=== PATIENT | male | born 1995 | race Caucasian/White ===

== ENCOUNTER 2016-11-20 06:16 | Observation (INO) | payer OTHER ==
[~2016-11-20] VITALS: Ht 182.9 cm; Wt 109.0 kg
[2016-11-20] MEDS ORDERED: SODIUM CHLORIDE 0.9% 1000ML 500 ML IV STA (06:33)
[2016-11-20] MEDS ORDERED: ASPIRIN 81 MG CHEW PO STA (06:33)
--- NOTE | 2016-11-20 06:53 | EMERGENCY ROOM VISIT NOTE ---
History Report prepared by Vasquez: Rita Snell Under the Supervision of: Dr. Isrrael Avila M.D. First contact with patient: 06:30 Chief Complaint: CHEST PAIN Stated Complaint: CHEST PAIN,IRREGULAR HEART RATE Nursing Triage Summary: Pt states he developed midsternal chest pain around 2300 last evening. Denies radiation into arm or jaw. History of Present Illness The patient is a 21 year old male who presents to the Emergency Room with complaints of waxing and waning chest pain that began 7.5 hours prior to arrival. He currently rates his discomfort as a 6/10 in severity and describes his pain as a dull pain, but notes that it does spike intermittently. The patient localizes his pain to his central chest. He states that he was on his way home when his pain began, and he notes that he had difficulty sleeping due to the pain. The patient reports that he felt tachycardic throughout the night. He states that when he did fall asleep for a short period of time, he woke up and vomited. The patient denies taking anything for his discomfort. He states that he has been feeling short of breath. The patient states that he has been experiencing hot and cold flashes. He denies his pain radiating to any other part of his body. The patient denies any active medical problems. He states that his pain is worsened with deep breathing and lying on either side. The patient states that the pain is not as severe when lying flat on his back and additionally notes that sitting up is better than lying flat. He denies any increased swelling to his lower extremities. The patient denies any personal or family history of DVTs or PEs. He states that last week he drove from [place] to [place]. The patient states that over the past four days he has noticed a cough, cold, and sore neck, noting that he has been taking DayQuil for his symptoms. He states that he has taken this in the past. Source of History: patient Onset: 7.5 hours prior to arrival Position: chest (central) Symptom Intensity: 6/10 Quality: dull Timing: waxes/wanes Modifying Factors (Worsening): breathing (deep), other (lying flat) Associated Symptoms: + cough, + neck pain, + SOB Note: Associated Symptoms: tachycardic, hot and cold flashes Review of Systems See HPI for pertinent positives & negatives. A total of 10 systems reviewed and were otherwise negative. Past Medical & Surgical Medical Problems: (1) No active medical problems Family History No pertinent family history stated. Social History Smoking Status: Current Some Day Smoker Marital Status: single Occupation Status: [employer] student Current/Historical Medications No Active Prescriptions or Reported Meds Allergies Coded Allergies: No Known Allergies (Unverified , 11/20/16) Physical Exam Vital Signs Date Time Temp Pulse Resp B/P (MAP) Pulse Ox O2 Delivery O2 Flow Rate FiO2 11/20/16 07:53 90 20 137/87 97 Room Air 11/20/16 06:27 88 11/20/16 06:25 97 Room Air 11/20/16 06:23 97 Room Air 11/20/16 06:17 37.1 93 20 144/97 93 Room Air Physical Exam GENERAL: Patient is in no acute distress. HEENT: No acute trauma, normocephalic atraumatic, mucous membranes moist, no nasal congestion, no scleral icterus. NECK: No stridor, no adenopathy, no meningismus, trachea is midline. CHEST: Tender to anterior chest wall over the sternum. LUNGS: Clear to auscultation bilaterally, no wheeze, no rhonchi, breath sounds equal. HEART: Without murmurs gallops or rubs, regular rate and rhythm. ABDOMEN: Soft, nontender, bowel sounds positive, no hernias, no peritonitis. EXTREMITIES: No cyanosis or edema, full range of motion of all the joints without pain or difficulty, no signs for acute trauma. NEUROLOGIC: Oriented x 3, no acute motor or sensory deficits, no focal weakness. SKIN: No rash, no jaundice, no diaphoresis. Medical Decision & Procedures ER Provider Diagnostic Interpretation: X-ray results as stated below per interpretation by me and the radiologist: CHEST ONE VIEW PORTABLE HISTORY: 21 years-old Male acute chest pain and cough COMPARISON: None available TECHNIQUE: Portable upright AP view of the chest FINDINGS: Cardiomediastinal and hilar silhouettes are within normal limits. No pneumothorax, pleural effusion or focal airspace consolidation. The bones are grossly intact. IMPRESSION: No acute cardiopulmonary process. The above report was generated using voice recognition software. It may contain grammatical, syntax or spelling errors. Electronically signed by: David Bay M.D. 11/20/2016 6:50 AM Dictated Date/Time: 11/20/2016 6:50 AM Laboratory Results 11/20/16 06:30 11/20/16 06:30 Test 11/20/16 06:30 11/20/16 06:39 Red Blood Count 5.03 M/uL (4.7-6.1) Mean Corpuscular Volume 85.5 fL (80-100) Mean Corpuscular Hemoglobin 31.4 pg (25-34) Mean Corpuscular Hemoglobin Concent 36.7 g/dl (32-36) RDW Standard Deviation 39.9 fL (36.4-46.3) RDW Coefficient of Variation 12.7 % (11.5-14.5) Mean Platelet Volume 9.7 fL (7.4-10.4) Prothrombin Time 10.9 SECONDS (9.0-12.0) Prothromb Time International Ratio 1.0 (0.9-1.1) Activated Partial Thromboplast Time 28.6 SECONDS (21.0-31.0) Partial Thromboplastin Ratio 1.1 Anion Gap 6.0 mmol/L (3-11) Est Creatinine Clear Calc Drug Dose 135.5 ml/min Estimated GFR () 110.6 Estimated GFR (Non- 95.5 BUN/Creatinine Ratio 10.1 (10-20) Calcium Level 8.5 mg/dl (8.5-10.1) Total Bilirubin 0.7 mg/dl (0.2-1) Aspartate Amino Transf (AST/SGOT) 22 U/L (15-37) Alanine Aminotransferase (ALT/SGPT) 31 U/L (12-78) Alkaline Phosphatase 100 U/L (45-117) Troponin I 1.380 ng/ml (0-0.045) Total Protein 7.4 gm/dl (6.4-8.2) Albumin 3.9 gm/dl (3.4-5.0) Globulin 3.5 gm/dl (2.5-4.0) Albumin/Globulin Ratio 1.1 (0.9-2) Bedside D-Dimer 254 ng/mlFEU (0-450) Laboratory results reviewed by me. Medications Administered Medications (Trade) Dose Ordered Sig/Soni Route Start Time Stop Time Status Last Admin Dose Admin Sodium Chloride 500 ml @ 999 mls/hr Q31M STAT IV 11/20/16 06:33 11/20/16 07:03 DC 11/20/16 06:44 999 MLS/HR Aspirin (Aspirin Chew) 324 mg NOW STAT PO 11/20/16 06:33 11/20/16 06:36 DC 11/20/16 06:42 324 MG ECG Indication: chest pain Rate (beats per minute): 85 Rhythm: normal sinus Findings: no acute ischemic change, no ectopy, other (diffuse early repolarization) ED Course 0632: The patient was evaluated in room B10. A complete history and physical exam was performed. 0633: Ordered Aspirin 324 mg PO, Sodium Chloride 500 ml @ 999 mls/hr IV. 0814: I reevaluated the patient and he is resting comfortably. I discussed the exam findings with him and I discussed the treatment plan. He verbalized complete understanding and agreement. He is going to be evaluated for further treatment. 0817: I discussed the patients case with AISHWARYA Sharif. He is going to evaluate the patient for further treatment. Medical Decision The patient is a 21 year old male who presents to the ED with complaints of chest pain. Differential diagnoses considered include Musculoskeletal pain, pericarditis, pneumonia, bronchitis, NV, PE, aortic dissection. There is a mild leukocytosis which could be consistent with infection. No concerning anemia. No significant electrolyte abnormality, kidney failure or hepatitis. There is no coagulopathy. EKG shows a normal sinus rhythm with some ST elevations consistent with early repolarization or possibly pericarditis. Chest x-ray does not show pneumonia, CHF or mediastinal widening. Cardiac enzyme testing times one does show a troponin elevation, consistent with some cardiac injury or strain. D-dimer testing was negative. With a negative d-dimer and my low suspicion for PE, I will stop the workup for this diagnosis. The patient received IV saline and oral aspirin. He is now pain-free since taking the aspirin. The patient likely has pericarditis and/or a myocarditis. He does have a presumed viral illness for which he is using DayQuil. Right now, he is comfortable and stable. I spoke with him about the findings. I do think a hospital stay is warranted. I spoke to the case management team. The on-call hospitalist was consulted. Consults Time Called: 813 Consulting Physician: AISHWARYA Sharif Returned Call: [phone] I discussed the patients case with AISHWARYA Sharif. He is going to evaluate the patient for further treatment. Impression Primary Impression: Precordial chest pain Additional Impression: Elevated troponin Scribe Attestation The scribe's documentation has been prepared under my direction and personally reviewed by me in its entirety. I confirm that the note above accurately reflects all work, treatment, procedures, and medical decision making performed by me. Departure Information Dispostion Being Evaluated By Hospitalist Prescriptions No Active Prescriptions or Reported Meds Referrals No Doctor, Assigned (PCP) Problem Qualifiers
[2016-11-20 07:56] LABS: MEAN CELL VOLUME 85.5 fL (80-100); MEAN CORPUSCULAR HEMOGLOBIN 31.4 pg (25-34); MEAN CORPUSCULAR HGB CONC 36.7 g/dl (32-36); MEAN PLATELET VOLUME 9.7 fL (7.4-10.4); PLATELET COUNT 178 K/uL (130-400); RED BLOOD COUNT 5.03 M/uL (4.7-6.1); WHITE BLOOD COUNT 11.72 K/uL (4.8-10.8)
[2016-11-20 08:00] LABS: PARTIAL THROMBOPLASTIN RATIO 1.1; PROTHROMBIN TIME (PATIENT) 10.9 SECONDS (9.0-12.0)
[2016-11-20 08:04] LABS: BUN/CREATININE RATIO 10.1 (10-20); CALCIUM 8.5 mg/dl (8.5-10.1); CREATININE 1.1 mg/dl (0.60-1.40); POTASSIUM 3.8 mmol/L (3.5-5.1)
[2016-11-20 08:11] LABS: ALB/GLOB RATIO 1.1 (0.9-2)
[2016-11-20] MEDS ORDERED: MoRPHine SULFATE 2 MG/ML CARP IV PRN (09:30)
[2016-11-20] MEDS ORDERED: NITROGLYCERIN 0.4 MG SL PER TAB CHARGE SL PRN (09:30)
[2016-11-20] MEDS ORDERED: ACETAMINOPHEN 325 MG TAB PO PRN (09:30)
--- NOTE | 2016-11-20 09:35 | History and Physical ---
History & Physical Date & Time of Service: Nov 20, 2016 at 09:27 Chief Complaint: Chest Pain,Irregular Heart Rate Primary Care Physician: No Doctor, Assigned History of Present Illness 21 y/o M came to ED with complain of substernal, constant, severe, non radiating chest pain started 11pm last night which was waxing and waning with most severe being 7/10 associated with minimal shortness of breath. Pain worse when sitting. He also felt like his heart was beating fast all night. He also vomited this morning after waking up. In the ER he was given aspirin which has almost resolved the pain. He did have uri symptoms for 3-4 days. Denies any illicit drug abuse. No family history of early CAD Past Medical/Surgical History Asthma Right ACL repair Family History Negative Social History Smoking Status: Current Some Day Smoker Marital Status: single Occupational Status: [employer] student Allergies Coded Allergies: No Known Allergies (Unverified , 11/20/16) Home Medications No Active Prescriptions or Reported Meds Review of Systems Constitutional: No fever Eyes: No worsening of vision ENT: No hearing loss Respiratory: + shortness of breath Cardiovascular: + chest pain Abdomen: No pain, No nausea, No vomiting Musculoskeletal: No joint pain Genitourinary - Male: No hematuria Neurologic: No weakness, No numbness/tingling Psychiatric: No depression symptoms Endocrine: No fatigue Hematologic / Lymphatic: No abnormal bleeding/bruising Integumentary: No rash Allergic / Immunologic: No environmental allergies Physical Exam Vital Signs Date Time Temp Pulse Resp B/P (MAP) Pulse Ox O2 Delivery O2 Flow Rate FiO2 11/20/16 09:22 76 20 145/93 95 Room Air 11/20/16 07:53 90 20 137/87 97 Room Air 11/20/16 06:27 88 11/20/16 06:25 97 Room Air 11/20/16 06:23 97 Room Air 11/20/16 06:17 37.1 93 20 144/97 93 Room Air General Appearance: WD/WN, no apparent distress Head: normocephalic, atraumatic Eyes: normal inspection, PERRL, EOMI ENT: normal ENT inspection, hearing grossly normal, TMs normal, pharynx normal Neck: supple, no adenopathy, thyroid normal Respiratory/Chest: chest non-tender, lungs clear, normal breath sounds, no respiratory distress, no accessory muscle use Cardiovascular: regular rate, rhythm, no edema, no gallop, no JVD, no murmur, normal peripheral pulses Abdomen/GI: normal bowel sounds, non tender, soft, no organomegaly, no pulsatile mass Back: normal inspection, no CVA tenderness Extremities/Musculoskelatal: normal inspection, no calf tenderness, no pedal edema Neurologic/Psych: environmental professional II-XII nml as tested, no motor/sensory deficits, alert, normal mood/affect, normal reflexes, oriented x 3 Skin: normal color, warm/dry Diagnostics Laboratory Results Results Past 24 Hours Test 11/20/16 06:30 11/20/16 06:39 Range/Units White Blood Count 11.72 4.8-10.8 K/uL Red Blood Count 5.03 4.7-6.1 M/uL Hemoglobin 15.8 14.0-18.0 g/dL Hematocrit 43.0 42-52 % Mean Corpuscular Volume 85.5 80-100 fL Mean Corpuscular Hemoglobin 31.4 25-34 pg Mean Corpuscular Hemoglobin Concent 36.7 32-36 g/dl RDW Standard Deviation 39.9 36.4-46.3 fL RDW Coefficient of Variation 12.7 11.5-14.5 % Platelet Count 178 130-400 K/uL Mean Platelet Volume 9.7 7.4-10.4 fL Prothrombin Time 10.9 9.0-12.0 SECONDS Prothromb Time International Ratio 1.0 0.9-1.1 Activated Partial Thromboplast Time 28.6 21.0-31.0 SECONDS Partial Thromboplastin Ratio 1.1 Sodium Level 137 136-145 mmol/L Potassium Level 3.8 3.5-5.1 mmol/L Chloride Level 104 98-107 mmol/L Carbon Dioxide Level 27 21-32 mmol/L Anion Gap 6.0 3-11 mmol/L Blood Urea Nitrogen 11 7-18 mg/dl Creatinine 1.10 0.60-1.40 mg/dl Est Creatinine Clear Calc Drug Dose 135.5 ml/min Estimated GFR () 110.6 Estimated GFR (Non- 95.5 BUN/Creatinine Ratio 10.1 10-20 Random Glucose 121 70-99 mg/dl Calcium Level 8.5 8.5-10.1 mg/dl Total Bilirubin 0.7 0.2-1 mg/dl Aspartate Amino Transf (AST/SGOT) 22 15-37 U/L Alanine Aminotransferase (ALT/SGPT) 31 12-78 U/L Alkaline Phosphatase 100 45-117 U/L Troponin I 1.380 0-0.045 ng/ml Total Protein 7.4 6.4-8.2 gm/dl Albumin 3.9 3.4-5.0 gm/dl Globulin 3.5 2.5-4.0 gm/dl Albumin/Globulin Ratio 1.1 0.9-2 Bedside D-Dimer 254 0-450 ng/mlFEU CXR normal other (EKG - NSR with rate of 85 and early repolarization changes, ) Impression Assessment and Plan 21 y/o M with Chest pain noted to have elevated troponin in ED Chest pain with elevated troponin Considering no risk factor for CAD and EKG findings - likely pericarditis Keep on PCU. Trend troponin Check Echo consult cardio. Aspirin VTE Prophylaxis VTE Risk Assessment Done? Y/N: Yes Risk Level: Low
[2016-11-20] MEDS ORDERED: IV FLUIDS COMPLETED PRN (09:45)
[2016-11-20 10:13] VITALS: BP 128/82; PULSE 80; TEMP 36.9; O2SAT 96; Ht 182.9 cm; Wt 109.0 kg
[2016-11-20] MEDS ORDERED: COLCHICINE 0.6 MG TAB PO ONE (11:53)
[2016-11-20] MEDS ORDERED: INDOMETHACIN 25 MG CAP PO ONE (11:53)
[2016-11-20] MEDS ORDERED: PERFLUTREN LIPID MICROSPHERE (DEFINITY) IV ONE (12:04)
[2016-11-20 12:15] VITALS: BP 133/89; PULSE 80; TEMP 36.9; O2SAT 98
--- NOTE | 2016-11-20 13:00 | CARDIOLOGY CONSULTATION ---
DATE OF CONSULTATION: 11/20/2016 PERTINENT HISTORY: Mr. Fontanez is a 21-year-old white male admitted earlier today with chest pain syndrome, abnormal ECG, and elevated troponin. This consultation was ordered to assist in his cardiac management. The patient was in his usual state of health until approximately 3 days prior to presentation when he developed coryza. The patient had a sore throat, rhinorrhea, malaise, and a low grade fever. However, last evening, the patient developed a substernal chest tightness, which was nonradiating. It was present all night and the patient was unable to sleep. He did notice a positional component and that his discomfort was much more pronounced when in a supine position. He felt better seated upright and leaning forward. The patient did experience fay shortness of breath; however, felt as if he "could not take in a deep breath." On presentation to Emergency Room, the patient had an EKG performed, which revealed diffuse ST elevation. His troponin level was elevated at 1.38. He was hospitalized for further care. The patient did receive 1 dose of aspirin in the Emergency Room and noted a dramatic improvement in his discomfort. Currently, the patient is resting comfortably in bed and notices only a vague substernal chest discomfort. PAST MEDICAL HISTORY: 1. Seasonal asthma. 2. Status post right ACL surgery -- 2013. MEDICATIONS: None. ALLERGIES: None. SOCIAL HISTORY: The patient is a senior at [employer], studying finance. Moving back to [place] after graduation. Admits to smoking 1 cigarette weekly. Admits to 10 beers every week. Does not use illicit drugs. FAMILY HISTORY: Parents and siblings are alive and well. REVIEW OF SYSTEMS: A 10-point review of systems is negative except for that described above. PHYSICAL EXAMINATION: GENERAL: This is a well-developed and well-nourished white male in no acute distress. VITAL SIGNS: Blood pressure 133/88 with a regular pulse of 80. Respiratory rate is 18. The patient is afebrile at 36.9 degrees Celsius. Saturation is 98% on room air. HEENT: Negative. NECK: Supple with full carotid upstrokes. There are no carotid bruits. Jugular venous pressure is flat at 90 degrees. There is no thyromegaly. CARDIOVASCULAR: Reveals a regular rhythm with normal S1 and S2. No S3, S4, murmurs or rubs are noted. LUNGS: Clear without rales, rhonchi, or wheezes. ABDOMEN: Soft and nontender without bruits. EXTREMITIES: Reveal intact radial artery and posterior tibial pulses bilaterally. There is no peripheral edema. LABORATORY DATA: CBC notes a hemoglobin of 15.8, hematocrit 43.0, white count 11.7, and platelet count 178,000. Sodium is 137 with potassium 3.8, chloride 104, bicarb 27, BUN 11, creatinine 1.1, and glucose 121. Liver transaminases are normal. Troponin I level was elevated at 1.38. INR is 1.0. Point of care D-dimer is normal at 254. EKG notes normal sinus rhythm and diffuse ST elevation consistent with pericarditis. Chest x-ray shows no acute disease. designer is benign. Echocardiogram notes reduced left ventricular systolic performance with an ejection fraction of approximately 40%. IMPRESSION: It appears that Mr. Fontanez is experiencing acute myopericarditis. There is mild left ventricular dysfunction with an elevation of his troponin that suggests a myocardial involvement. EKG is classic for acute pericarditis. I suspect this is related to his recent upper respiratory infection and is likely viral in origin. Would treat with indomethacin and colchicine. Indomethacin should be continued for 1 month and colchicine for up to 3 months. PLAN: 1. Start indomethacin 50 mg t.i.d. 2. Start colchicine 0.6 mg daily. 3. Nonsteroidal agents for a total of 1 month. 4. Colchicine for a total of 3 months. 5. Reassess left ventricular systolic function as an outpatient in approximately 6-8 weeks. 6. Further recommendations depending on his clinical course. SATHYA
--- NOTE | 2016-11-20 14:16 | ECHOCARDIOGRAM REPORT ---
*NOTICE TO RECEIVING [employer] This information is strictly Confidential and protected under [place] law. [place] law prohibits you from making any further disclosure of this information unless further disclosure is expressly permitted by the written consent of the person to whom it pertains or is authorized by law. A general authorization for the release of medical or other information is not sufficient for this purpose. Hospital accepts no responsibility if the information is made available to any other person, INCLUDING THE PATIENT. Interpretation Summary * Name: MISTY SEXTON Study Date: 11/20/2016 10:25 AM BP: 145/93 mmHg * Patient Location: 2\S\S233\S\1 HR: 68 * : 1995 (M/d/yyyy) Gender: Male Height: 72 in * Age: 21 yrs Ethnicity: CA Weight: 240 lb * Ordering Physician: Ernestina Mireles * Performed By: Trisha Resendiz * * Reason For Study: CHEST PAIN, ELEVATED TROP * BSA: 2.3 m2 * -- Conclusions -- * Left ventricular systolic function is mildly reduced. * There is mild global hypokinesis of the left ventricle. * Ejection fraction = 45%. * No significant valvular pathology. Procedure Details * A complete two-dimensional transthoracic echocardiogram was performed (2D, M-mode, Doppler and color flow Doppler). * A contrast injection of Definity was performed to improve assessment of LV function. * Contrast was injected into an intravenous site in the left arm. * One vial of Definity ultrasound contrast was diluted in normal saline to a total volume of 10 ml. A total of '3' ml of solution was administered during imaging. * Lot # [id number] of Definity utilized for procedure. * Expiration date 11/15. * The attending nurse who injected the contrast agent was CARLY LENZ RN. Left Ventricle * The left ventricle is normal in size. * There is normal left ventricular wall thickness. * Left ventricular systolic function is mildly reduced. * Ejection fraction = 45% * There is mild global hypokinesis of the left ventricle. Right Ventricle * The right ventricle is grossly normal size. * The right ventricular systolic function is borderline reduced. Atria * The left atrium is mildly dilated. * Right atrial size is normal. * No ASD detected; PFO is not assessed. Mitral Valve * The mitral valve anatomy is normal. * There is no mitral valve stenosis. * There is trace mitral regurgitation. Tricuspid Valve * The tricuspid valve anatomy is normal. * There is trace tricuspid regurgitation. Aortic Valve * The aortic valve is normal in structure and function. * No hemodynamically significant valvular aortic stenosis. * No aortic regurgitation is present. Pulmonic Valve * The pulmonary valve is not well seen, but the Doppler examination is normal without significant regurgitation or stenosis. Great Vessels * The aortic root is normal size. * The pulmonary is not well visualized. Pericardium/Pleural * There is no pericardial effusion. Great Vessels * Normal inferior vena cava size and collapsability with sniff indicates a normal right atrial pressure of 3 mmHg MMode 2D Measurements and Calculations IVSd 1.8 cm IVSs 2.0 cm LVIDd 5.4 cm LVIDs 4.2 cm LVPWd 0.97 cm LVPWs 1.7 cm IVS/LVPW 1.9 FS 22.0 % EDV(Teich) 142.3 ml ESV(Teich) 79.6 ml EF(Teich) 44.1 % EDV(cubed) 158.9 ml ESV(cubed) 75.3 ml EF(cubed) 52.6 % % IVS thick 9.4 % % LVPW thick 79.1 % LV mass(C)d 325.5 grams LV mass(C)dI 141.4 grams/m\S\2 LV mass(C)s 352.9 grams LV mass(C)sI 153.3 grams/m\S\2 CO(Teich) 5.1 l/min CI(Teich) 2.2 l/min/m\S\2 SV(Teich) 62.7 ml SI(Teich) 27.3 ml/m\S\2 CO(cubed) 6.9 l/min CI(cubed) 3.0 l/min/m\S\2 SV(cubed) 83.6 ml SI(cubed) 36.3 ml/m\S\2 ACS 1.7 cm LA dimension 4.2 cm asc Aorta Diam 2.8 cm LVOT diam 2.2 cm LVOT area 3.9 cm\S\2 LVAd ap4 51.2 cm\S\2 LVLd ap4 10.4 cm EDV(MOD-sp4) 206.0 ml LVAs ap4 34.2 cm\S\2 LVLs ap4 9.2 cm ESV(MOD-sp4) 109.0 ml EF(MOD-sp4) 47.1 % LVAd ap2 49.0 cm\S\2 LVLd ap2 10.8 cm EDV(MOD-sp2) 179.0 ml LVAs ap2 33.2 cm\S\2 LVLs ap2 9.1 cm ESV(MOD-sp2) 101.0 ml EF(MOD-sp2) 43.6 % CO(MOD-sp4) 8.0 l/min CI(MOD-sp4) 3.5 l/min/m\S\2 SV(MOD-sp4) 97.0 ml SI(MOD-sp4) 42.1 ml/m\S\2 CO(MOD-sp2) 6.4 l/min CI(MOD-sp2) 2.8 l/min/m\S\2 SV(MOD-sp2) 78.0 ml SI(MOD-sp2) 33.9 ml/m\S\2 Doppler Measurements and Calculations MV E max zac 87.1 cm/sec MV A max zac 48.3 cm/sec MV E/A 1.8 MV dec time 0.23 sec Ao V2 max 114.4 cm/sec Ao max PG 5.2 mmHg Ao max PG (full) 2.7 mmHg ELISABETH(V,A) 2.7 cm\S\2 ELISABETH(V,D) 2.7 cm\S\2 LV V1 max PG 2.5 mmHg LV V1 max 79.0 cm/sec MR max zac 299.6 cm/sec MR max PG 35.9 mmHg PA V2 max 60.6 cm/sec PA max PG 1.5 mmHg TR max zac 206.5 cm/sec
[2016-11-20 15:09] VITALS: BP 123/82; PULSE 82; TEMP 36.9; O2SAT 96
[2016-11-20 15:51] LABS: CKMB/CK RATIO 3.6 (0-3.0)
[2016-11-20] MEDS: INDOMETHACIN 25 MG CAP PO SCH ×2 (16:07→21:28)
[2016-11-20 19:12] VITALS: BP 124/79; PULSE 64; TEMP 36.7; O2SAT 98
[2016-11-20 23:41] VITALS: BP 113/74; PULSE 66; TEMP 36.4; O2SAT 96
[2016-11-20 23:55] LABS: CKMB/CK RATIO 3.7 (0-3.0)
[2016-11-21] VITALS: O2SAT 98
[2016-11-21 07:08] VITALS: BP 106/69; PULSE 62; TEMP 36.3; O2SAT 97
[2016-11-21 08:00] VITALS: O2SAT 97
[2016-11-21] MEDS: INDOMETHACIN 25 MG CAP PO SCH (08:35)
[2016-11-21] MEDS ORDERED: COLCHICINE 0.6 MG TAB PO SCH (09:00)
--- NOTE | 2016-11-21 09:35 | CARDIOLOGY PROGRESS NOTE ---
DATE: 11/21/2016 DATE: 11/21/2016 SUBJECTIVE: Mr. Fontanez is resting comfortably in bed without complaints of chest pain or dyspnea. He is anxious for hospital discharge. OBJECTIVE: VITAL SIGNS: Blood pressure is 106/69 with a regular pulse of 62. Respiratory rate is 18. The patient is afebrile at 36.3 degrees Celsius. Saturations 97% on room air. NECK: Supple with full carotid upstrokes. There are no carotid bruits. Jugular venous pressure is flat at 90 degrees. There is no thyromegaly. CARDIOVASCULAR EXAMINATION: Reveals a regular rhythm with normal S1 and S2. No S3, S4, rubs, or murmurs are noted. LUNGS: Clear without rales, rhonchi, or wheezes. ABDOMEN: Soft without bruits. EXTREMITIES: Reveal intact radial artery pulses bilaterally. There is no peripheral edema. LABORATORY DATA: Troponin I level down to 1.55 from a peak value of 2.26. CKs remain normal. media monitor is benign. EKG is pending. IMPRESSION AND PLAN: 1. Acute mild pericarditis -- patient's symptoms resolved with the initiation of indomethacin and colchicine. As before, will continue indomethacin for a total of 1 month, and colchicine for a total of 3 months. 2. Mild left ventricle dysfunction -- ejection fraction estimated at 40%. This is likely secondary to the acute myocarditis. Will plan to recheck an echocardiogram as an outpatient in 1-2 months.
[2016-11-21] MEDS ORDERED: CLC6 PO (11:09)
[2016-11-21] MEDS ORDERED: INDO-22 PO (11:09)
[2016-11-21 11:13] LABS: LYME DISEASE AB IGG NEG (NEG); LYME DISEASE AB IGM NEG (NEG)
--- NOTE | 2016-11-21 11:29 | Discharge Instructions ---
Discharge Instructions Date of Service Nov 21, 2016. Admission Reason for Admission: Elevated Troponin Discharge Discharge Diagnosis / Problem: Acute myopericarditis Discharge Goals Goal(s): Decrease discomfort, Improve function Activity Recommendations Activity Limitations: per Instructions/Follow-up section Lifting Limitations: gradually increase as tolerated Exercise/Sports Limitations: until after follow-up appointment May Resume Sexual Activity: when tolerated Shower/Bathe: no limitations Driving or Machine Use: no limitations . Instructions / Follow-Up Instructions / Follow-Up You were admitted to [facility] with chest pain. EKG and echocardiogram were consistent with acute myopericarditis an inflammatory reaction of you heart and the surrounding sac (pericardium) likely secondary to your recent upper respiratory illness. Lyme testing was negative. You are prescribed anti-inflammatory medications to help with the pain and speed up your recovery time for this. You may feel more tired and short of breath than usual - if this is progressively getting worse your should see your primary care provider or in an emergency return to the ER. Please take all medications as directed. If you develop stomach pains - let your primary care provider know as these medications can cause stomach ulcers. Follow up with [facility] in 1 week. Gradual return to full activities as tolerated. No sports until cleared by your PCP or cardiology. You will follow up with cardiology with a repeat echocardiogram in approximately 1-2 months. Current Hospital Diet Patient's current hospital diet: Regular Diet Discharge Diet Recommended Diet: Regular Diet Pending Studies Studies pending at discharge: no Medical Emergencies . Who to Call and When: Medical Emergencies: If at any time you feel your situation is an emergency, please call 911 immediately. . Non-Emergent Contact Non-Emergency issues call your: Primary Care Provider . . "Provider Documentation" section prepared by Prosper Bashir. . Traffic Control Flagger Recommendations Traffic Control Flagger Recommendations: Cardiology (Dr Mcdonough) - indomethacin for a total of 1 month, and colchicine for a total of 3 months - recheck an echocardiogram as an outpatient in 1-2 months VTE Core Measure Inpt VTE Proph given/why not?: Treatment not indicated
[2016-11-21 11:33] VITALS: BP 123/82; PULSE 68; TEMP 36.5; O2SAT 97
--- NOTE | 2016-11-21 20:29 | Discharge Summary ---
Discharge Summary Date of Service Nov 21, 2016. (Henry Weston M.D.) Discharge Summary Admission Date: Nov 20, 2016 at 09:22 Discharge Date: Nov 21, 2016 Discharge Disposition: Home Principal Diagnosis: Acute Myopericarditis (Henry Weston M.D.) Medication Reconciliation New Medications: Colchicine (Colcrys) 0.6 Mg Tab 0.6 MG PO QAM for 90 Days, #90 TAB Indomethacin (Indocin) 25 Mg Cap 50 MG PO TID for 30 Days, #180 CAP Referrals At Discharge Follow up Referrals: [employer] Referral - Within a Month with Klever Mcdonough M.D. Discharge Exam Review of Systems: Constitutional: No fever, No chills, No sweats Respiratory: No cough, No sputum, No wheezing, No shortness of breath, No dyspnea on exertion Cardiovascular: No chest pain, No orthopnea, No edema, No palpitations Abdomen: No pain, No nausea, No vomiting, No diarrhea Physical Exam: General Appearance: WD/WN, no apparent distress Neck: supple, no adenopathy Respiratory/Chest: chest non-tender, lungs clear, normal breath sounds, no respiratory distress, no accessory muscle use Cardiovascular: regular rate, rhythm, no edema, no gallop, no JVD, no murmur , normal peripheral pulses Abdomen / GI: normal bowel sounds, non tender, soft, no organomegaly, no pulsatile mass Neurologic/Psychiatric: alert, normal mood/affect, normal reflexes, oriented x 3 Skin: normal color, warm/dry, no rash (Henry Weston M.D.) No more chest pain Review of Systems: Constitutional: No fever Respiratory: No shortness of breath Cardiovascular: No chest pain Abdomen: No pain Physical Exam: General Appearance: no apparent distress Respiratory/Chest: lungs clear, no respiratory distress Cardiovascular: regular rate, rhythm Abdomen / GI: normal bowel sounds, non tender, soft Neurologic/Psychiatric: alert, oriented x 3 Skin: warm/dry (Ernestina Mireles M.D.) Hospital Course Mr. Fontanez is a 21 yo male admitted and treated for acute myopericarditis. He was admitted on 23Aug and discharged the following day. Pt came into the ED with severe substernal chest pain that would come and go intermittently following 3-4 days of URI. Patient also expressed that his heart was racing and that he was vomiting in the morning prior to admission. In the ED , aspirin relieved his pain. Over hospital course pt's troponins were 1.38, 2.26 and 1.5. CKMB was 8.9 and 7.5. The patient was seen by cardiology. EHCO showed mild hypokinesis of the left ventricle and the EKG showed diffused ST elevations. Myopericarditis was diagnosed and treatment commenced with Indomethacin 50mg for 1 month and Colchicine .6mg for 3 months. Pt's symptoms improved the following morning. Prior to discharge, pt was also found negative for Lyme Disease. In summary, Mr. Fontanez was diagnosed with Myopericarditis following a URI and was successfully treated with anti-inflammatory medications. Cardiology will recheck echo in 1-2 months. Total Time Spent: Less than 30 minutes This includes examination of the patient, discharge planning, medication reconciliation, and communication with other providers. (Henry Weston M.D.) Resident Physician Supervision Note: I was present with Dr. Weston in bedside. I verified the marquez history and physical, reviewed labs and image studies, discussed the case with the resident and agree with the findings and care plan. Total Time Spent: Greater than 30 minutes (35) (Ernestina Mireles M.D.) Discharge Instructions Please refer to the electronic Patient Visit Report (Discharge Instructions) for additional information. (Henry Weston M.D.) Additional Copies To [facility]
== END 2016-11-21 12:16 | disposition home or self-care (01) ==
LOC: C.EDB 06:17 → C.2T 09:22 → ENRESERV 09:49
PROVIDERS: ADMIT Family Medicine; ATTEND Family Medicine
DX: I31.9 Disease of pericardium, unspecified (principal); R07.2 Precordial pain; F17.200 Nicotine dependence, unspecified, uncomplicated; I49.9 Cardiac arrhythmia, unspecified; J45.909 Unspecified asthma, uncomplicated